=== PATIENT | male | born 1940 | race Two or more races ===

== ENCOUNTER → 2024-11-28 | Outpatient (CLI) | payer MEDICAID, OTHER ==
[~2024-11-28] MED LIST: ANAS1TAB7 PO; ATOR40TA52 PO; CALC0.25 PO; CHOL500016 PO; CLOP75TA70 PO; DONE5TAB80 PO; HYDR-4833 PO; LISI20TA56 PO; OYST1TAB OR
== END | disposition home or self-care (01) ==
LOC: LAB 13:43
PROVIDERS: ATTEND Family Medicine
DX: Z12.11 Encounter for screening for malignant neoplasm of colon (principal)
CPT/HCPCS: 82270

== ENCOUNTER 2025-05-22 09:40 | Outpatient (CLI) | payer MEDICAID, OTHER ==
[2025-05-22 10:48] LABS: Hematocrit 43.5 % (41.0-53.0); Hemoglobin 15.1 g/dL (13.5-17.5); Mean Corpuscular Hemoglobin 32.9 pg (28.0-32.0); Mean Corpuscular Volume 94.9 fL (80.0-100.0); Nucleated Red Blood Cells % 0.1 %
[2025-05-22 10:54] LABS: Urine Protein, UAD Negative (Negative)
[2025-05-22 11:06] LABS: Alanine Aminotransferase 11 U/L (7-40); Albumin 4.3 g/dL (3.2-4.8); Alkaline Phosphatase 75 U/L (46-116); Anion Gap 9 (5-15); BUN/Creatinine Ratio 14.0 (10.0-20.0); Bilirubin, Total 0.7 mg/dL (0.2-1.0); Blood Urea Nitrogen 20 mg/dL (9-23); Calcium 8.9 mg/dL (8.7-10.4); Carbon Dioxide 26 mmol/L (20-31); Chloride 103 mmol/L (98-107); Cholesterol 107 mg/dL (< 200); Glucose 103 mg/dL (74-106); HDL Cholesterol 45 mg/dL (40-59); Potassium 4.2 mmol/L (3.5-5.1); Sodium 138 mmol/L (136-145); Total Protein 6.6 g/dL (5.7-8.2); Triglycerides 69 mg/dL (< 150)
[2025-05-22 11:24] LABS: Microalb/Creat Ratio, Urine 6.00
[2025-05-22 11:29] LABS: Uric Acid 8.8 mg/dL (3.7-9.2)
== END 2025-05-22 17:00 | disposition home or self-care (01) ==
LOC: LAB 09:40
PROVIDERS: ATTEND Family Medicine
DX: I12.9 Hypertensive chronic kidney disease with stage 1 through stage 4 chronic kidney disease, or unspecified chronic kidney disease (principal); N18.30 Chronic kidney disease, stage 3 unspecified; E78.5 Hyperlipidemia, unspecified; E78.00 Pure hypercholesterolemia, unspecified; E88.819 Insulin resistance, unspecified; E55.9 Vitamin D deficiency, unspecified; D53.9 Nutritional anemia, unspecified
CPT/HCPCS: 36415; 80053; 80061; 81001; 82043; 82570; 82607; 84443; 84550; 85025